=== PATIENT | male | born 1990 | race Caucasian/White ===

== ENCOUNTER 2024-07-02 02:13 | Emergency (ER) | payer OTHER ==
[2024-07-02 02:19] VITALS: BP 140/78; PULSE 72; RESP 18; TEMP 97.5; BMI 23.1
== END 2024-07-02 04:57 | disposition home or self-care (01) ==
LOC: JER 02:13
DX: R25.1 Tremor, unspecified (principal); I10 Essential (primary) hypertension
CPT/HCPCS: 82962; 93005; 93010; 99284-25